=== PATIENT | male | born 1960 | race Caucasian/White ===

== ENCOUNTER → 2021-04-23 | Outpatient (CLI) | payer MEDICARE ==
[~2021-04-23] MED LIST: AMLODIPINE BESY10 MG PO; HYDROCHLOROTH12.5 MG PO; INSULIN LI100 UNIT/2 SQ; TOUJEO MAX300 UNIT/1 SQ
[2021-04-23 16:16] LABS: HEMOGLOBIN 12.2 gm/dl (14.0-17.5); RED BLOOD COUNT 4.03 M/UL (4.20-5.50); WHITE BLOOD COUNT 10.2 K/UL (4.5-11.0)
[2021-04-24 07:10] LABS: COMPLEMENT C3, SERUM 121 mg/dL (82-167); COMPLEMENT C4, SERUM 27 mg/dL (12-38)
[2021-04-26 12:11] LABS: ANTIGLOMERULAR BM AB 3 units (0-20)
[2021-04-26 15:11] LABS: ALBUMIN 3.2 g/dL (2.9-4.4); ALPHA-1-GLOBULIN 0.3 g/dL (0.0-0.4); ALPHA-2-GLOBULIN 0.9 g/dL (0.4-1.0); BETA GLOBULIN 1.2 g/dL (0.7-1.3); GAMMA GLOBULIN 0.9 g/dL (0.4-1.8); GLOBULIN, TOTAL 3.3 g/dL (2.2-3.9); IMMUNOGLOBULIN A, QN, SERUM 346 mg/dL (90-386); IMMUNOGLOBULIN G, QN, SERUM 882 mg/dL (603-1613); IMMUNOGLOBULIN M, QN, SERUM 160 mg/dL (20-172); M-SPIKE Not Observed g/dL (Not Observed); PROTEIN, TOTAL, SERUM 6.5 g/dL (6.0-8.5)
[2021-04-26 16:11] LABS: ATYPICAL PANCA <1:20 titer (Neg:<1:20); CYTOPLASMIC (C-ANCA) <1:20 titer (Neg:<1:20); PERINUCLEAR (P-ANCA) <1:20 titer (Neg:<1:20)
== END ==
LOC: LAB 15:15
PROVIDERS: Internal Medicine Nephrology
DX: N17.9 Acute kidney failure, unspecified (principal)
CPT/HCPCS: 82784; 84155; 84165; 85027; 85610; 85730; 86038; 86160; 86256; 86334

== ENCOUNTER → 2021-04-26 | Outpatient (CLI) | payer MEDICARE | LOC: CT 06:45 | DX: N17.9 Acute kidney failure, unspecified (principal); N26.9 Renal sclerosis, unspecified; E87.5 Hyperkalemia; E11.9 Type 2 diabetes mellitus without complications; I10 Essential (primary) hypertension; Z79.4 Long term (current) use of insulin; Z79.899 Other long term (current) drug therapy | CPT/HCPCS: 82962; 88305; 88313; 88346; 88348 ==